=== PATIENT | female | born 1980 | race Two or more races ===

== ENCOUNTER 2021-08-27 16:11 | Emergency (ER) | payer MEDICAID ==
[~2021-08-27] VITALS: Ht 160 cm; Wt 86.0 kg
[2021-08-27] MEDS ORDERED: ACETAMINOPHEN 325MG TABLET PO ONE (17:30)
[2021-08-27] MEDS ORDERED: TOPUD MT (17:31)
[2021-08-27 18:10] VITALS: BP 134/55
== END 2021-08-27 18:16 | disposition home or self-care (01) ==
LOC: ER 17:00
DX: B34.9 Viral infection, unspecified (principal); Z20.822 Contact with and (suspected) exposure to COVID-19
CPT/HCPCS: 71045; 87426; 99284